=== PATIENT | female | born 1960 | race Caucasian/White ===

== ENCOUNTER 2017-07-10 17:28 | Emergency (ER) | payer OTHER, BC ==
[~2017-07-10] VITALS: Ht 162.6 cm; Wt 119.4 kg
[~2017-07-10 17:28] MED LIST: NAPROSYN500 MG PO; ULTRAM50 MG PO
[2017-07-10 18:19] LABS: HEMATOCRIT 44.6 % (36.0-46.0); HEMOGLOBIN 14.9 G/DL (11.9-15.5); MCH 30.2 PG (29.0-34.0); MCHC 33.4 G/DL (30.0-36.0); MCV 90.5 FL (83-99); PLATELET COUNT 282 K/uL (156-360); RBC DIS.WIDTH-CV 13.5 % (11.8-14.6); RBC DIS.WIDTH-SD 44.9 % (39-53); RED BLOOD COUNT 4.93 M/uL (3.80-5.20)
[2017-07-10 18:30] LABS: CHLORIDE 109 mEq/L (99-109); POTASSIUM 4.3 mEq/L (3.7-5.4); SODIUM 142 mEq/L (136-147)
[2017-07-10 18:31] LABS: GLUCOSE 121 mg/dL (70-99)
[2017-07-10 18:35] LABS: CREATININE 0.8 mg/dL (0.6-1.3); GFR ESTIMATE (CALCULATED) > 59 mL/min/
[2017-07-10 18:36] LABS: UREA NITROGEN (BUN) 12 mg/dL (9-23)
[2017-07-10 21:32] VITALS: BP 147/96
== END 2017-07-10 21:32 | disposition home or self-care (01) ==
LOC: EME 17:28
PROVIDERS: Emergency Medicine
DX: S30.1XXA Contusion of abdominal wall, initial encounter (principal); M79.671 Pain in right foot; V49.40XA Driver injured in collision with unspecified motor vehicles in traffic accident, initial encounter; Y92.410 Unspecified street and highway as the place of occurrence of the external cause
CPT/HCPCS: 70450; 71260; 72125; 73630; 74177; 80048; 85027; 99281; 99284; J7030